=== PATIENT | male | born 1935 | race Caucasian/White ===

== ENCOUNTER 2018-06-02 14:10 | Inpatient (IN) | payer MEDICARE ==
[2018-06-02] MEDS ORDERED: NS 0.9% 1000 ML** 1,000 ML IV ONE (14:51)
[2018-06-02] MEDS ORDERED: Fluconazole 100 MG IVPREMIX(*) 100 MG/50 ML BAG IVPB SCH (16:00)
[2018-06-02] MEDS: HYDROmorphone INJ1* 1 MG/ML SYRINGE IV SLOW PU PRN ×2 (16:59→19:51)
[2018-06-02] MEDS: Ondansetron INJ* 2 MG/ML VIAL IV PRN (17:00)
[2018-06-02] MEDS: NS 0.9% 1000 ML** 1,000 ML IV SCH ×3 (17:04→21:05)
[2018-06-02] MEDS: Fluconazole 100 MG IVPREMIX(*) 100 MG/50 ML BAG IVPB SCH (18:27)
[2018-06-02] MEDS: Metoprolol Tartrate TAB* 50 mg PO SCH (19:51)
[2018-06-02] MEDS: cloNIDine TAB* 0.1 MG PO SCH (19:51)
[2018-06-02 21:00] LABS: Hematocrit 35 % (36-46); Hemoglobin 11.9 g/dL (14.0-18.0)
[2018-06-02 21:15] LABS: Calcium 8.1 mg/dL (8.6-10.3); EGFR African American 5.2 (>60); EGFR Non-African American 4.3 (>60); Potassium 3.5 mmol/L (3.5-5.0)
[2018-06-02 21:40] LABS: BUN/Creatinine Ratio 13.6 (8-20)
[2018-06-02] MEDS ORDERED: Heparin VIAL(*) 5000 UNITS/ML VIAL (FIVE THOUSAND) SUBCUT SCH (22:00)
[2018-06-02] MEDS ORDERED: Potassium Chlor TAB* 20 MEQ TAB.ER PO ONE (22:00)
[2018-06-02] MEDS ORDERED: NS 0.9% 1000 ML** 2,000 ML IV ONE (23:50)
[2018-06-03] MEDS: HYDROmorphone INJ1* 1 MG/ML SYRINGE IV SLOW PU PRN ×4 (03:20→23:10)
[2018-06-03] MEDS: Ondansetron INJ* 2 MG/ML VIAL IV PRN (03:21)
[2018-06-03] MEDS: NS 0.9% 1000 ML** 1,000 ML IV SCH ×2 (03:27→08:39)
[2018-06-03] MEDS ORDERED: Potassium Chlor TAB* 20 MEQ TAB.ER PO ONE ×2 (06:00→09:37)
[2018-06-03 06:34] LABS: ABS Basophils 0 10^3/ul (0-0.2); ABS Eosinophils 0.1 10^3/ul (0-0.6); ABS Lymphocytes 0.2 10^3/ul (1.0-4.8); ABS Monocytes 0.7 10^3/ul (0-0.8); ABS Neutrophils 8.9 10^3/ul (1.5-7.7); ABS Nucleated RBC 0 10^3/ul; Eosinophil % 0.6 %; Hematocrit 31 % (36-46); Hemoglobin 10.7 g/dL (14.0-18.0); Lymphocyte % 2.2 %; Mean Corpuscular HGB Conc 34 g/dL (31-36); Mean Corpuscular Hemoglobin 31 pg (27-31); Mean Corpuscular Volume 90 fL (80-94); Mean Platelet Volume 7.9 fL (7.4-10.4); Nucleated Red Blood Cells % 0; Platelet Count 255 10^3/uL (150-450); Red Blood Count 3.47 10^6 /uL (4.18-5.48); Red Cell Distribution Width 15 % (10.5-15)
[2018-06-03 06:51] LABS: Albumin 3.1 g/dL (3.2-5.2); Albumin/Globulin Ratio 0.8 (1-3); BUN/Creatinine Ratio 16.4 (8-20); EGFR African American 9.7 (>60); Globulin 3.8 g/dL (2-4); Potassium 2.9 mmol/L (3.5-5.0); Total Bilirubin 0.3 mg/dL (0.2-1.0); Total Protein 6.9 g/dL (6.4-8.9)
[2018-06-03] MEDS: Pantoprazole TAB * 40 MG TAB PO SCH (08:37)
[2018-06-03] MEDS: cloNIDine TAB* 0.1 MG PO SCH ×2 (08:37→20:16)
[2018-06-03] MEDS: Tamsulosin CAP* 0.4 MG PO SCH (08:38)
[2018-06-03] MEDS: Metoprolol Tartrate TAB* 50 mg PO SCH ×2 (08:38→20:16)
[2018-06-03 13:08] LABS: BUN/Creatinine Ratio 19.3 (8-20); Calcium 8.2 mg/dL (8.6-10.3); EGFR African American 15.3 (>60); EGFR Non-African American 12.6 (>60); Potassium 2.8 mmol/L (3.5-5.0)
[2018-06-03] MEDS ORDERED: Heparin VIAL(*) 5000 UNITS/ML VIAL (FIVE THOUSAND) SUBCUT SCH (14:00)
[2018-06-03] MEDS: NS 0.9% w/ 40 Meq KCL 1000 ML* 1,000 ML IV SCH ×3 (14:19→22:07)
[2018-06-03] MEDS: Fluconazole 100 MG IVPREMIX(*) 100 MG/50 ML BAG IVPB SCH (18:12)
[2018-06-04] MEDS: NS 0.9% w/ 40 Meq KCL 1000 ML* 1,000 ML IV SCH ×4 (02:22→23:31)
[2018-06-04] MEDS: HYDROmorphone INJ1* 1 MG/ML SYRINGE IV SLOW PU PRN ×6 (03:21→21:18)
[2018-06-04] MEDS: Ondansetron INJ* 2 MG/ML VIAL IV PRN ×2 (07:32→21:19)
[2018-06-04] MEDS: cloNIDine TAB* 0.1 MG PO SCH ×2 (07:33→21:13)
[2018-06-04] MEDS: Tamsulosin CAP* 0.4 MG PO SCH (07:33)
[2018-06-04] MEDS: Pantoprazole TAB * 40 MG TAB PO SCH (07:33)
[2018-06-04] MEDS: Metoprolol Tartrate TAB* 50 mg PO SCH ×2 (07:33→21:12)
[2018-06-04 10:39] LABS: ABS Basophils 0 10^3/ul (0-0.2); ABS Eosinophils 0.1 10^3/ul (0-0.6); ABS Lymphocytes 0.4 10^3/ul (1.0-4.8); ABS Monocytes 0.9 10^3/ul (0-0.8); ABS Neutrophils 7.1 10^3/ul (1.5-7.7); ABS Nucleated RBC 0 10^3/ul; Eosinophil % 1.1 %; Hematocrit 25 % (36-46); Hemoglobin 8.5 g/dL (14.0-18.0); Lymphocyte % 4.4 %; Mean Corpuscular HGB Conc 34 g/dL (31-36); Mean Corpuscular Hemoglobin 31 pg (27-31); Mean Corpuscular Volume 91 fL (80-94); Mean Platelet Volume 7.8 fL (7.4-10.4); Nucleated Red Blood Cells % 0; Platelet Count 192 10^3/uL (150-450); Red Blood Count 2.77 10^6 /uL (4.18-5.48); Red Cell Distribution Width 15 % (10.5-15); White Blood Count 8.4 10^3/uL (3.5-10.8)
[2018-06-04 11:10] LABS: BUN/Creatinine Ratio 20.4 (8-20); EGFR African American 42.4 (>60); Potassium 3.3 mmol/L (3.5-5.0)
[2018-06-04] MEDS ORDERED: Potassium Chlor TAB* 20 MEQ TAB.ER PO ONE (11:23)
[2018-06-04] MEDS ORDERED: Potassium Chloride* LIQUID 20 MEQ/15 ML UDC PO ONE (12:00)
[2018-06-04] MEDS ORDERED: Potassium Chloride LIQUID* 20 MEQ PACKET PO ONE (13:00)
[2018-06-04] MEDS: Fluconazole 100 MG IVPREMIX(*) 100 MG/50 ML BAG IVPB SCH (19:19)
[2018-06-05] MEDS: HYDROmorphone INJ1* 1 MG/ML SYRINGE IV SLOW PU PRN ×3 (00:11→06:00)
[2018-06-05 07:45] LABS: BUN/Creatinine Ratio 16.7 (8-20); Calcium 8.5 mg/dL (8.6-10.3); EGFR African American 54.3 (>60); EGFR Non-African American 44.9 (>60)
[2018-06-05] MEDS: NS 0.9% w/ 40 Meq KCL 1000 ML* 1,000 ML IV SCH ×2 (08:34→17:41)
[2018-06-05] MEDS: cloNIDine TAB* 0.1 MG PO SCH (08:42)
[2018-06-05] MEDS: Tamsulosin CAP* 0.4 MG PO SCH (08:42)
[2018-06-05] MEDS: Pantoprazole TAB * 40 MG TAB PO SCH (08:42)
[2018-06-05] MEDS: Metoprolol Tartrate TAB* 50 mg PO SCH (08:42)
[2018-06-05 08:49] LABS: ABS Basophils 0.1 10^3/ul (0-0.2); ABS Eosinophils 0.2 10^3/ul (0-0.6); ABS Lymphocytes 0.8 10^3/ul (1.0-4.8); ABS Monocytes 0.8 10^3/ul (0-0.8); ABS Neutrophils 7.9 10^3/ul (1.5-7.7); ABS Nucleated RBC 0 10^3/ul; Eosinophil % 1.9 %; Hematocrit 28 % (36-46); Hemoglobin 9.4 g/dL (14.0-18.0); Mean Corpuscular HGB Conc 34 g/dL (31-36); Mean Corpuscular Hemoglobin 31 pg (27-31); Mean Corpuscular Volume 91 fL (80-94); Mean Platelet Volume 7.6 fL (7.4-10.4); Nucleated Red Blood Cells % 0; Platelet Count 181 10^3/uL (150-450); Red Blood Count 3.03 10^6 /uL (4.18-5.48); Red Cell Distribution Width 15 % (10.5-15); White Blood Count 9.8 10^3/uL (3.5-10.8)
--- NOTE | 2018-06-05 10:39 | PN ---
Progress Note - Progress Note Date of Service: 06/05/18 SOAP: Subjective: []Still in pain and feel poorly. Throat better and eating. No BM in several days. Pain controlled on narcotics. He feels is QOL is awful and he does not want to go back on therapy for his cancer. Clonidine HCl (Catapres Tab*) 0.1 mg PO BID [facility] Last Admin: 06/05/18 08:42 Dose: 0.1 mg Fentanyl (Duragesic Patch 25 Mcg/Hr*) 25 mcg TRANSDERM Q72H [facility] Hydromorphone HCl (Dilaudid Inj1s*) 1 mg IV SLOW PU Q2H PRN PRN Reason: PAIN Last Admin: 06/05/18 06:00 Dose: 1 mg Fluconazole/Sodium Chloride (Diflucan 100 Mg Ivpremix(*)) 100 mg in 50 mls @ 100 mls/hr IVPB 1800 [facility] Stop: 06/06/18 18:29 Last Admin: 06/04/18 19:19 Dose: 100 mls/hr Potassium Chloride/Sodium Chloride (Ns 0.9% W/ 40 Meq Kcl 1000 Ml*) 1,000 mls @ 100 mls/hr IV PER RATE [facility] Last Admin: 06/05/18 08:34 Dose: 100 mls/hr Metoprolol Tartrate (Lopressor Tab*) 50 mg PO BID [facility] Last Admin: 06/05/18 08:42 Dose: 50 mg Ondansetron HCl (Zofran Inj*) 4 mg IV Q4H PRN PRN Reason: NAUSEA/VOMITING Last Admin: 06/04/18 21:19 Dose: 4 mg Pantoprazole Sodium (Protonix Tab*) 40 mg PO DAILY [facility] Last Admin: 06/05/18 08:42 Dose: 40 mg Polyethylene Glycol/Electrolytes (Miralax*) 17 gm PO 0800,2100 [facility] Stop: 06/06/18 20:59 Potassium Chloride (Klor Con Er Tab*) 20 meq PO BID [facility] Stop: 06/08/18 10:59 Senna (Senokot Tab*) 2 tab PO DAILY [facility] Tamsulosin HCl (Flomax Cap*) 0.4 mg PO DAILY [facility] Last Admin: 06/05/18 08:42 Dose: 0.4 mg Objective: [] Vital Signs Temp Pulse Resp BP Pulse Ox 98.1 F 87 16 159/70 97 06/05/18 07:53 06/05/18 07:53 06/05/18 07:53 06/05/18 07:53 06/05/18 07:53 HEENT thrush is better CTA RRR S1S2 +BS, distended and non tender Ext Tr edema K 3.0, Cr 1.5 Assessment: []82 year old male with metastaic prostate cancer ARF from bladder outlet obstruction. Renal function improved with Cedeno. Discussion today about disease prognosis and therapy. He has not wanted aggressive therapy and does not want to suffer. No further therapy for his cancer and will consult hospice. Discussed prostate obstruction and will leave Cedeno in place. If take out will within one to two weeks. Plan: []1. Prostate cancer. No additional therapy, hospice consultation. 2. Disp. Home if possible, little social support. 3. Bladder obstruction. Cedeno will remain in place 4. Hematuria, Improving. No additional Pradaxa 5. Pain. - Continue Dilaudid today IV, go to PO tomorrow. - Fentanly patch 25 mcg now 6. FEN. Replete K and Mg and continue IVF for now 7. Constipation - Senna 1 bid - Miralax x 2 today.
[2018-06-05 10:50] LABS: Magnesium 1.3 mg/dL (1.9-2.7)
[2018-06-05] MEDS: fentaNYL PATCH 25 MCG/HR TRANSDERM SCH (11:02)
[2018-06-05] MEDS: Potassium Chlor TAB* 20 MEQ TAB.ER PO SCH (11:04)
--- NOTE | 2018-06-05 12:09 | CONSULT ---
Palliative / Hospice Consult Ordering Provider: Bartolome Jimenez - Subjective Code Status: DNR MOLST Part A Completed: Yes - on chart MOLST Part E Completed:: Yes - on chart - History or Present Illness History or Present Illness: 82 yo male resident of [facility] with metastatic prostate cancer admitted for abdominal pain. Cedeno placed which helped the acute renal failure. Currently he is trying fentanyl for pain control. PMH is significant for ARF secondary to bladder outlet obstruction, HTN, R leg aneurysm and osteoporosis. Pt is very sleepy and keeps falling asleep during conversation. There are no old records and pt is a poor historian. He has been in [facility] from 1991 until 2016 when he was released. His prostate cancer was diagnosed in [facility]. He has been following with Dr. Jimenez since being released. Now he is unable to tolerate the chemotherapy, doesn't want to pursue it and is interested in Hospice. Feels he doesn't have a good quality of life. Just elected to be DNR/DNI. Lab Values: Abnormal Lab Results 06/05/18 06/05/18 06/05/18 06:50 08:42 08:42 WBC 9.8 RBC 3.03 L Hgb 9.4 L Hct 28 L MCV 91 MCH 31 MCHC 34 RDW 15 Plt Count 181 MPV 7.6 Neut % (Auto) 80.9 Lymph % (Auto) 8.0 [place] % (Auto) 8.5 Eos % (Auto) 1.9 Baso % (Auto) 0.7 Absolute Neuts (auto) 7.9 H Absolute Lymphs (auto) 0.8 L Absolute Monos (auto) 0.8 Absolute Eos (auto) 0.2 Absolute Basos (auto) 0.1 Absolute Nucleated RBC 0 Nucleated RBC % 0 Sodium 142 Potassium 3.0 L Chloride 115 H Carbon Dioxide 17 L Anion Gap 10 BUN 25 H Creatinine 1.50 H Est GFR ( Amer) 54.3 Est GFR (Non-Af Amer) 44.9 BUN/Creatinine Ratio 16.7 Glucose 106 H Calcium 8.5 L Magnesium 1.3 L Prostate Specific Ag 63.208 H Laboratory Last Values WBC 9.8 10^3/uL (3.5-10.8) 06/05/18 08:42 RBC 3.03 10^6 /uL (4.18-5.48) L 06/05/18 08:42 Hgb 9.4 g/dL (14.0-18.0) L 06/05/18 08:42 Hct 28 % (36-46) L 06/05/18 08:42 MCV 91 fL (80-94) 06/05/18 08:42 MCH 31 pg (27-31) 06/05/18 08:42 MCHC 34 g/dL (31-36) 06/05/18 08:42 RDW 15 % (10.5-15) 06/05/18 08:42 Plt Count 181 10^3/uL (150-450) 06/05/18 08:42 MPV 7.6 fL (7.4-10.4) 06/05/18 08:42 Neut % (Auto) 80.9 % 06/05/18 08:42 Lymph % (Auto) 8.0 % 06/05/18 08:42 [place] % (Auto) 8.5 % 06/05/18 08:42 Eos % (Auto) 1.9 % 06/05/18 08:42 Baso % (Auto) 0.7 % 06/05/18 08:42 Absolute Neuts (auto) 7.9 10^3/ul (1.5-7.7) H 06/05/18 08:42 Absolute Lymphs (auto) 0.8 10^3/ul (1.0-4.8) L 06/05/18 08:42 Absolute Monos (auto) 0.8 10^3/ul (0-0.8) 06/05/18 08:42 Absolute Eos (auto) 0.2 10^3/ul (0-0.6) 06/05/18 08:42 Absolute Basos (auto) 0.1 10^3/ul (0-0.2) 06/05/18 08:42 Absolute Nucleated RBC 0 10^3/ul 06/05/18 08:42 Nucleated RBC % 0 06/05/18 08:42 Sodium 142 mmol/L (135-145) 06/05/18 06:50 Potassium 3.0 mmol/L (3.5-5.0) L 06/05/18 06:50 Chloride 115 mmol/L (101-111) H 06/05/18 06:50 Carbon Dioxide 17 mmol/L (22-32) L 06/05/18 06:50 Anion Gap 10 mmol/L (2-11) 06/05/18 06:50 BUN 25 mg/dL (6-24) H 06/05/18 06:50 Creatinine 1.50 mg/dL (0.67-1.17) H 06/05/18 06:50 Est GFR ( Amer) 54.3 (>60) 06/05/18 06:50 Est GFR (Non-Af Amer) 44.9 (>60) 06/05/18 06:50 BUN/Creatinine Ratio 16.7 (8-20) 06/05/18 06:50 Glucose 106 mg/dL (70-100) H 06/05/18 06:50 Calcium 8.5 mg/dL (8.6-10.3) L 06/05/18 06:50 Magnesium 1.3 mg/dL (1.9-2.7) L 06/05/18 08:42 Total Bilirubin 0.30 mg/dL (0.2-1.0) 06/03/18 06:03 AST 35 U/L (13-39) 06/03/18 06:03 ALT 32 U/L (7-52) 06/03/18 06:03 Alkaline Phosphatase 78 U/L (34-104) 06/03/18 06:03 Total Protein 6.9 g/dL (6.4-8.9) 06/03/18 06:03 Albumin 3.1 g/dL (3.2-5.2) L 06/03/18 06:03 Globulin 3.8 g/dL (2-4) 06/03/18 06:03 Albumin/Globulin Ratio 0.8 (1-3) L 06/03/18 06:03 Prostate Specific Ag 63.208 ng/mL (0-4.000) H 06/05/18 08:42 - Objective Active Medications: Clonidine HCl (Catapres Tab*) 0.1 mg PO BID [facility] Last Admin: 06/05/18 08:42 Dose: 0.1 mg Fentanyl (Duragesic Patch 25 Mcg/Hr*) 25 mcg TRANSDERM Q72H [facility] Last Admin: 06/05/18 11:02 Dose: 25 mcg Hydromorphone HCl (Dilaudid Inj1s*) 1 mg IV SLOW PU Q2H PRN PRN Reason: PAIN Last Admin: 06/05/18 06:00 Dose: 1 mg Fluconazole/Sodium Chloride (Diflucan 100 Mg Ivpremix(*)) 100 mg in 50 mls @ 100 mls/hr IVPB 1800 [facility] Stop: 06/06/18 18:29 Last Admin: 06/04/18 19:19 Dose: 100 mls/hr Potassium Chloride/Sodium Chloride (Ns 0.9% W/ 40 Meq Kcl 1000 Ml*) 1,000 mls @ 100 mls/hr IV PER RATE [facility] Last Admin: 06/05/18 08:34 Dose: 100 mls/hr Metoprolol Tartrate (Lopressor Tab*) 50 mg PO BID [facility] Last Admin: 06/05/18 08:42 Dose: 50 mg Ondansetron HCl (Zofran Inj*) 4 mg IV Q4H PRN PRN Reason: NAUSEA/VOMITING Last Admin: 06/04/18 21:19 Dose: 4 mg Pantoprazole Sodium (Protonix Tab*) 40 mg PO DAILY [facility] Last Admin: 06/05/18 08:42 Dose: 40 mg Polyethylene Glycol/Electrolytes (Miralax*) 17 gm PO 0800,2100 [facility] Stop: 06/06/18 20:59 Potassium Chloride (Klor Con Er Tab*) 20 meq PO BID [facility] Stop: 06/08/18 10:59 Last Admin: 06/05/18 11:04 Dose: 20 meq Senna (Senokot Tab*) 2 tab PO BEDTIME [facility] Tamsulosin HCl (Flomax Cap*) 0.4 mg PO DAILY [facility] Last Admin: 06/05/18 08:42 Dose: 0.4 mg Vital Signs: Vital Signs: Temp Pulse Resp BP Pulse Ox 98.1 F 87 16 159/70 97 06/05/18 07:53 06/05/18 07:53 06/05/18 11:02 06/05/18 07:53 06/05/18 07:53 Patient Weight: Weight 89.539 kg Intake and Output: Intake & Output 06/03/18 06/04/18 06/05/18 06/06/18 06:59 06:59 06:59 06:59 Intake Total 2714 7602 3520 240 Output Total 9875 49746 4636 600 Balance -4088 -1719 -605 -360 Weight 89.539 kg Intake: IV Fluids 4232 6955 2250 Fluconazole 50 NS (0.9%) 4232 3000 NS (0.9%) 40 meq KCL 3955 2200 IVPB 51 Fluconazole 51 Oral 880 1660 1270 240 Output: Urine 1500 600 Cedeno 7000 94523 4125 Residual 700 16 fr 700 Other: Estimated Void Large Date of Last Bowel [id number] Movement # Bowel Movements 0 0 0 ADLs: Meal Record Start: 06/02/18 16: 45 Freq: DAILY@0900,1400,1800 Status: Active Protocol: Created 06/02/18 16:45 System (Rec: 06/02/18 16:45 System MED-M18) Document 06/02/18 18:00 [id number] (Rec: 06/02/18 21:49 [id number] MED-C09) Document 06/03/18 08:40 [id number] (Rec: 06/03/18 08:40 [id number] MED-M11) Document 06/03/18 09:00 [id number] (Rec: 06/03/18 09:28 [id number] MED-C11) Document 06/03/18 13:05 [id number] (Rec: 06/03/18 13:05 [id number] MED-C14) Document 06/03/18 18:00 [id number] (Rec: 06/03/18 18:13 [id number] MED-C14) Document 06/04/18 09:00 [id number] (Rec: 06/04/18 09:42 [id number] MED-C11) Document 06/04/18 14:00 [id number] (Rec: 06/04/18 14:50 [id number] MED-C09) Document 06/04/18 15:19 [id number] (Rec: 06/04/18 15:19 [id number] MED-C09) Document 06/04/18 18:00 [id number] (Rec: 06/04/18 22:14 [id number] MED-C16) Document 06/05/18 09:00 [id number] (Rec: 06/05/18 09:30 [id number] MED-C11) Intake and Output Start: 06/02/18 15: 25 Freq: 06,14,2200 Status: Active Protocol: Created 06/02/18 15:25 [id number] (Rec: 06/02/18 15:25 BKG DON-BG12) Document 06/02/18 21:24 [id number] (Rec: 06/02/18 21:25 [id number] MED-C09) Document 06/02/18 23:42 [id number] (Rec: 06/02/18 23:43 [id number] MED-C15) Document 06/03/18 03:31 [id number] (Rec: 06/03/18 03:31 [id number] MED-M21) Document 06/03/18 03:37 [id number] (Rec: 06/03/18 03:38 [id number] MED-C09) Document 06/03/18 08:05 [id number] (Rec: 06/03/18 08:06 [id number] MED-C09) Document 06/03/18 11:41 [id number] (Rec: 06/03/18 11:42 [id number] MED-C11) Document 06/03/18 14:00 MEV8803 (Rec: 06/03/18 14:25 [id number] MED-C14) Document 06/03/18 20:22 [id number] (Rec: 06/03/18 20:22 [id number] MED-M19) Document 06/03/18 21:18 [id number] (Rec: 06/03/18 21:24 [id number] MED-C11) Document 06/04/18 01:19 SAT6646 (Rec: 06/04/18 01:19 [id number] MED-C04) Document 06/04/18 05:16 [id number] (Rec: 06/04/18 05:17 [id number] MED-C11) Document 06/04/18 14:00 PEM5916 (Rec: 06/04/18 14:50 EST0370 MED-C09) Document 06/04/18 22:00 DCQ2310 (Rec: 06/04/18 22:14 [id number] MED-C16) Document 06/05/18 05:32 [id number] (Rec: 06/05/18 05:33 [id number] MED-C13) Intake and Output Start: 06/02/18 16: 45 Freq: DAILY@0600,1400,2200 Status: Active Protocol: Created 06/02/18 16:45 System (Rec: 06/02/18 16:45 System MED-M18) Document 06/02/18 21:24 [id number] (Rec: 06/02/18 21:25 [id number] MED-C09) Document 06/03/18 03:37 [id number] (Rec: 06/03/18 03:38 [id number] MED-C09) Document 06/03/18 14:00 [id number] (Rec: 06/03/18 14:25 [id number] MED-C14) Document 06/03/18 18:43 [id number] (Rec: 06/03/18 18:44 [id number] MED-C11) Document 06/03/18 21:18 [id number] (Rec: 06/03/18 21:24 [id number] MED-C11) Document 06/04/18 05:16 [id number] (Rec: 06/04/18 05:17 [id number] MED-C11) Document 06/04/18 14:00 [id number] (Rec: 06/04/18 14:50 [id number] MED-C09) Document 06/04/18 22:00 [id number] (Rec: 06/04/18 22:14 [id number] MED-C16) Document 06/05/18 05:32 [id number] (Rec: 06/05/18 05:33 [id number] MED-C13) Head: Normal Neck: NL Appearance and Movements; NL JVP Cardiovascular: NL Sounds; No Murmurs; No JVD Respiratory: Clear to Auscultation Extremities: - - 1+edema Neurological: Alert and Oriented x 3 - but gets confused - Assessment Assessment: 82yo male with metastatic prostate eligible for hospice - Plan Consult Plan (MU): Hospice Plan: Discussion with pt about treatment options. He wants to go home and have hospice see him there. He has a brother in the area and a niece(Tamra Shanks?) but doesn't want to live with them. His brother Radhames is his HCP [phone]. Explained how hospice works and left a brochure. Referral is being sent through hospital case management. He asked me to call Rima Cyr, nurse navigator about his medicare card. She said it will still work but he needs a new one which she will help him get. He also asked me to call Brisa from [employer] who is the case management director (not [facility] as he thought) left message. According to pt Dr Jimenez said with chemo he would have 1-2 yr life expectancy without it 3-6months. Pt is eligible for hospice with diagnosis of metastatic prostate cancer. KPS 60% PPS 60% - Time On Unit Date of Evaluation: 06/05/18 Hospice Consult Time in: 11:30 Hospice Consult Time Out: 01:00 Hospice Consult Time Total: -630 > 50% of Time Spend In Counseling or Coordinating Care: Yes
[2018-06-05] MEDS: Fluconazole 100 MG IVPREMIX(*) 100 MG/50 ML BAG IVPB SCH (17:41)
[2018-06-05] MEDS: fentaNYL Patch Check Q Shift 1 NOTE FOLLOW UP SCH (19:25)
[2018-06-06] MEDS: Polyethylene Glycol 3350* 17 GM PACKET PO SCH ×2 (00:12→10:18)
[2018-06-06] MEDS: Metoprolol Tartrate TAB* 50 mg PO SCH ×3 (00:13→20:43)
[2018-06-06] MEDS: Senna TAB PO SCH ×2 (00:13→20:48)
[2018-06-06] MEDS: Potassium Chlor TAB* 20 MEQ TAB.ER PO SCH ×3 (00:13→20:48)
[2018-06-06] MEDS: cloNIDine TAB* 0.1 MG PO SCH ×3 (00:13→20:43)
[2018-06-06] MEDS: LORazepam TAB(*) 1 MG PO PRN (02:28)
[2018-06-06] MEDS: NS 0.9% w/ 40 Meq KCL 1000 ML* 1,000 ML IV SCH (04:39)
[2018-06-06] MEDS: fentaNYL Patch Check Q Shift 1 NOTE FOLLOW UP SCH ×2 (07:08→18:26)
[2018-06-06 07:37] LABS: ABS Basophils 0 10^3/ul (0-0.2); ABS Eosinophils 0.2 10^3/ul (0-0.6); ABS Lymphocytes 0.8 10^3/ul (1.0-4.8); ABS Monocytes 0.6 10^3/ul (0-0.8); ABS Neutrophils 5.3 10^3/ul (1.5-7.7); ABS Nucleated RBC 0 10^3/ul; Eosinophil % 3.2 %; Hematocrit 25 % (36-46); Hemoglobin 8.6 g/dL (14.0-18.0); Lymphocyte % 11.7 %; Mean Corpuscular HGB Conc 35 g/dL (31-36); Mean Corpuscular Hemoglobin 31 pg (27-31); Mean Corpuscular Volume 89 fL (80-94); Mean Platelet Volume 7.9 fL (7.4-10.4); Nucleated Red Blood Cells % 0; Platelet Count 148 10^3/uL (150-450); Red Cell Distribution Width 14 % (10.5-15)
[2018-06-06 07:41] LABS: Albumin 2.6 g/dL (3.2-5.2); Calcium 7.3 mg/dL (8.6-10.3); Total Bilirubin 0.5 mg/dL (0.2-1.0)
[2018-06-06 07:43] LABS: Magnesium 0.9 mg/dL (1.9-2.7); Potassium 2.3 mmol/L (3.5-5.0)
[2018-06-06 07:47] LABS: Albumin/Globulin Ratio 0.8 (1-3); BUN/Creatinine Ratio 10.5 (8-20); EGFR African American 103.3 (>60); EGFR Non-African American 85.4 (>60); Globulin 3.3 g/dL (2-4); Total Protein 5.9 g/dL (6.4-8.9)
[2018-06-06] MEDS ORDERED: Magnesium Sulfate 4 GM IV IVPB ONE ×2 (09:00→17:18)
[2018-06-06] MEDS ORDERED: Potassium Chlor TAB* 20 MEQ TAB.ER PO ONE ×2 (09:00→19:00)
[2018-06-06] MEDS: Tamsulosin CAP* 0.4 MG PO SCH (10:37)
[2018-06-06] MEDS: KCL 20 MEQ/100 ML IVPREMIX* 20 MEQ/100 ML BAG IV SCH ×4 (10:38→22:50)
[2018-06-06] MEDS: Pantoprazole TAB * 40 MG TAB PO SCH (10:38)
[2018-06-06 17:13] LABS: BUN/Creatinine Ratio 11.5 (8-20); Calcium 7.1 mg/dL (8.6-10.3); EGFR African American 115.6 (>60); EGFR Non-African American 95.5 (>60); Magnesium 1.8 mg/dL (1.9-2.7)
[2018-06-06 17:16] LABS: Potassium 2.5 mmol/L (3.5-5.0)
[2018-06-06] MEDS: Fluconazole 100 MG IVPREMIX(*) 100 MG/50 ML BAG IVPB SCH (17:55)
[2018-06-06 23:41] LABS: BUN/Creatinine Ratio 11.4 (8-20); Calcium 7.1 mg/dL (8.6-10.3); EGFR African American 100.6 (>60); EGFR Non-African American 83.1 (>60); Magnesium 2.3 mg/dL (1.9-2.7); Potassium 2.8 mmol/L (3.5-5.0)
[2018-06-07 06:31] LABS: Calcium 6.9 mg/dL (8.6-10.3); Magnesium 1.7 mg/dL (1.9-2.7)
[2018-06-07 06:35] LABS: Potassium 2.5 mmol/L (3.5-5.0)
[2018-06-07 06:36] LABS: BUN/Creatinine Ratio 12.2 (8-20); EGFR African American 122.8 (>60); EGFR Non-African American 101.5 (>60)
[2018-06-07] MEDS: fentaNYL Patch Check Q Shift 1 NOTE FOLLOW UP SCH ×2 (06:42→19:58)
[2018-06-07] MEDS ORDERED: Potassium Chlor TAB* 20 MEQ TAB.ER PO ONE (07:00)
[2018-06-07] MEDS ORDERED: IVPREMIX IV ONE (07:00)
[2018-06-07] MEDS ORDERED: POTASSIUM CHLORIDE IV SCH (07:00)
[2018-06-07] MEDS ORDERED: KCL IV ONE (07:00)
[2018-06-07] MEDS: KCL 20 MEQ/100 ML IVPREMIX* 20 MEQ/100 ML BAG IV SCH ×2 (07:15→11:34)
[2018-06-07] MEDS: cloNIDine TAB* 0.1 MG PO SCH ×2 (07:16→20:42)
[2018-06-07] MEDS: Pantoprazole TAB * 40 MG TAB PO SCH (07:16)
[2018-06-07] MEDS: Metoprolol Tartrate TAB* 50 mg PO SCH ×2 (07:16→20:42)
[2018-06-07] MEDS: Tamsulosin CAP* 0.4 MG PO SCH (07:16)
[2018-06-07] MEDS: Potassium Chlor TAB* 20 MEQ TAB.ER PO SCH (07:17)
[2018-06-07] MEDS ORDERED: Magnesium Sulf 4 GM/100 ML IV* 4,000 MG/100 ML BAG IVPB ONE (09:24)
[2018-06-07] MEDS: NS 0.9% w/ 40 Meq KCL 1000 ML* 1,000 ML IV SCH ×2 (10:50→17:38)
[2018-06-07] MEDS: Potassium Chloride LIQUID* 20 MEQ PACKET PO SCH ×2 (10:56→20:47)
[2018-06-07] MEDS: Spironolactone TAB* 25 MG PO SCH ×2 (10:56→20:41)
[2018-06-07] MEDS ORDERED: Potassium Chloride* LIQUID 20 MEQ/15 ML UDC PO SCH (11:00)
[2018-06-07] MEDS: Gabapentin CAP(*) 100 MG PO SCH ×2 (12:20→20:40)
[2018-06-07 14:53] LABS: BUN/Creatinine Ratio 10.3 (8-20); Calcium 7.2 mg/dL (8.6-10.3); EGFR African American 115.6 (>60); EGFR Non-African American 95.5 (>60); Magnesium 1.4 mg/dL (1.9-2.7); Potassium 3.1 mmol/L (3.5-5.0)
[2018-06-07] MEDS ORDERED: Potassium Chloride LIQUID* 20 MEQ PACKET PO ONE (20:00)
[2018-06-07] MEDS ORDERED: Magnesium Sulfate 4 GM IV IVPB ONE (20:00)
[2018-06-07] MEDS: oxyCODONE TAB* 5 MG TAB PO PRN (20:41)
[2018-06-07] MEDS: Senna TAB PO SCH (20:41)
[2018-06-08] MEDS: NS 0.9% w/ 40 Meq KCL 1000 ML* 1,000 ML IV SCH ×2 (03:46→20:10)
[2018-06-08] MEDS: fentaNYL Patch Check Q Shift 1 NOTE FOLLOW UP SCH ×2 (07:24→18:46)
[2018-06-08] MEDS ORDERED: Magnesium Sulf 4 GM/100 ML IV* 4,000 MG/100 ML BAG IVPB ONE ×2 (08:00→09:30)
[2018-06-08 08:53] LABS: BUN/Creatinine Ratio 10.8 (8-20); Calcium 7.4 mg/dL (8.6-10.3); EGFR African American 122.8 (>60); EGFR Non-African American 101.5 (>60); Magnesium 1.7 mg/dL (1.9-2.7); Potassium 3.2 mmol/L (3.5-5.0)
[2018-06-08] MEDS ORDERED: Senna TAB PO PRN (09:23)
[2018-06-08] MEDS: cloNIDine TAB* 0.1 MG PO SCH ×2 (10:06→21:11)
[2018-06-08] MEDS: Gabapentin CAP(*) 100 MG PO SCH ×3 (10:07→21:10)
[2018-06-08] MEDS: Tamsulosin CAP* 0.4 MG PO SCH (10:08)
[2018-06-08] MEDS: Pantoprazole TAB * 40 MG TAB PO SCH (10:09)
[2018-06-08] MEDS: Metoprolol Tartrate TAB* 50 mg PO SCH ×2 (10:09→21:11)
[2018-06-08] MEDS: Spironolactone TAB* 25 MG PO SCH ×2 (10:09→21:11)
[2018-06-08] MEDS: fentaNYL PATCH 25 MCG/HR TRANSDERM SCH (10:14)
[2018-06-08] MEDS: KCL 10 MEQ/50 ML IVPREMIX* 10 MEQ/50 ML BAG IV SCH ×4 (10:18→15:19)
[2018-06-08] MEDS: Potassium Chloride LIQUID* 20 MEQ PACKET PO SCH (10:28)
--- NOTE | 2018-06-08 10:43 | PN ---
Progress Note - Progress Note Date of Service: 06/08/18 SOAP: Subjective: [Somewhat miserable today. Reports some diffuse myalgias, most pain is in his feet while walking. Reports nausea and vomiting with oral potassium and refuses any further doses. Apart from when he has taken the potassium he denies further nausea. No diarrhea or constipation, some abdominal bloating.] Objective: [ Laboratory Results - last 24 hr 06/07/18 06/08/18 13:41 08:30 Sodium 138 137 Potassium 3.1 L 3.2 L Chloride 104 104 Carbon Dioxide 28 28 Anion Gap 6 5 BUN 8 8 Creatinine 0.78 0.74 Est GFR ( Amer) 115.6 122.8 Est GFR (Non-Af Amer) 95.5 101.5 BUN/Creatinine Ratio 10.3 10.8 Glucose 130 H 93 Calcium 7.2 L 7.4 L Magnesium 1.4 L 1.7 L Clonidine HCl (Catapres Tab*) 0.1 mg PO BID [facility] Last Admin: 06/08/18 10:06 Dose: 0.1 mg Fentanyl (Duragesic Patch 25 Mcg/Hr*) 25 mcg TRANSDERM Q72H [facility] Last Admin: 06/08/18 10:14 Dose: 25 mcg Gabapentin (Neurontin Cap(*)) 200 mg PO TID [facility] Last Admin: 06/08/18 10:07 Dose: 200 mg Potassium Chloride/Sodium Chloride (Ns 0.9% W/ 40 Meq Kcl 1000 Ml*) 1,000 mls @ 150 mls/hr IV PER RATE [facility] Last Admin: 06/08/18 03:46 Dose: 150 mls/hr Magnesium Sulfate (Magnesium Sulf 4 Gm/100 Ml Iv*) 4,000 mg in 100 mls @ 33.333 mls/hr IVPB ONCE ONE Stop: 06/08/18 10:59 Last Admin: 06/08/18 10:02 Dose: 33.333 mls/hr Magnesium Sulfate (Magnesium Sulf 4 Gm/100 Ml Iv*) 4,000 mg in 100 mls @ 33.333 mls/hr IVPB ONCE ONE Stop: 06/08/18 12:29 Last Admin: 06/08/18 10:28 Dose: Not Given Potassium Chloride (Potassium Chloride 10 Meq/50 Ml Ivpremix*) 10 meq in 50 mls @ 50 mls/hr IV Q1H [facility] Stop: 06/08/18 12:59 Last Admin: 06/08/18 10:18 Dose: 50 mls/hr Lorazepam (Ativan Tab(*)) 1 mg PO BEDTIME PRN PRN Reason: ANXIETY, SLEEP Last Admin: 06/06/18 02:28 Dose: 1 mg Metoprolol Tartrate (Lopressor Tab*) 50 mg PO BID [facility] Last Admin: 06/08/18 10:09 Dose: 50 mg Ondansetron HCl (Zofran Inj*) 4 mg IV Q4H PRN PRN Reason: NAUSEA/VOMITING Last Admin: 06/04/18 21:19 Dose: 4 mg Oxycodone HCl (Roxycodone Tab*) 5 mg PO Q4H PRN PRN Reason: PAIN Last Admin: 06/07/18 20:41 Dose: 5 mg Pantoprazole Sodium (Protonix Tab*) 40 mg PO DAILY [facility] Last Admin: 06/08/18 10:09 Dose: 40 mg Pharmacy Profile Note (Fentanyl Patch Check Q Shift) 1 note FOLLOW UP 0700, 1900 [facility] Last Admin: 06/08/18 07:24 Dose: 1 note Potassium Chloride (Klor-Con Liquid*) 20 meq PO BID [facility] Last Admin: 06/08/18 10:28 Dose: Not Given Senna (Senokot Tab*) 2 tab PO BEDTIME [facility] Last Admin: 06/07/18 20:41 Dose: Not Given Senna (Senokot Tab*) 1 tab PO DAILY PRN PRN Reason: CONSTIPATION Spironolactone (Aldactone Tab*) 25 mg PO BID [facility] Last Admin: 06/08/18 10:09 Dose: 25 mg Tamsulosin HCl (Flomax Cap*) 0.4 mg PO DAILY [facility] Last Admin: 06/08/18 10:08 Dose: 0.4 mg Vital Signs: Temp Pulse Resp BP Pulse Ox 98.3 F 76 18 137/70 98 06/08/18 07:30 06/08/18 07:30 06/08/18 10:14 06/08/18 07:30 06/08/18 07:30 Exam: Gen: 82 yo male who appears comfortable HEENT: MMM CV: RRR Resp: CTA, no w/c/r Abd: soft, mildly distended, nonTTP Ext: 1-2+ LE edema Skin: no rashes] Assessment: [82 yo male with metastatic prostate CA admitted with LOUIS secondary to bladder outlet obstruction, s/p Cedeno catheter placement with normalization of Cr but complicated by postobstructive diuresis and K/Mg wasting.] Plan: [1. LOUIS secondary to bladder outlet obstruction - resolved - keep Cedeno catheter in place 2. Postobstructive diuresis with hypokalemia/hypomagnesemia - output remains high, but improving - electrolytes somewhat improved today - cont with aggressive electrolyte repletion (avoid oral K) - cont spironolactone which was started in hopes of sparing K - cont IVF in attempt to match output or allow for a slightly negative balance 3. Metastatic prostate CA - plan for home with hospice following this hospitalization 4. Pain - cont fentanyl patch 25 mcg and prn oxycodone - foot pain likely exacerbated by LE edema, but avoid aggressive diuresis at this time Dispo: plan for home with hospice when he has achieved an appropriate fluid balance and can maintain his electrolytes, possibly in the next 1-2 days]
[2018-06-08 16:12] LABS: BUN/Creatinine Ratio 9.8 (8-20); Calcium 7.2 mg/dL (8.6-10.3); EGFR African American 109.1 (>60); EGFR Non-African American 90.2 (>60); Magnesium 2.3 mg/dL (1.9-2.7); Potassium 3.7 mmol/L (3.5-5.0)
[2018-06-08] MEDS: LORazepam TAB(*) 1 MG PO PRN (21:10)
[2018-06-08] MEDS: oxyCODONE TAB* 5 MG TAB PO PRN (21:11)
[2018-06-08] MEDS: Senna TAB PO SCH (21:26)
[2018-06-09] MEDS: NS 0.9% w/ 40 Meq KCL 1000 ML* 1,000 ML IV SCH (03:28)
[2018-06-09] MEDS: fentaNYL Patch Check Q Shift 1 NOTE FOLLOW UP SCH ×2 (06:56→18:43)
--- NOTE | 2018-06-09 08:00 | PN ---
Progress Note - Progress Note Date of Service: 06/09/18 SOAP: Subjective: []Feels better today. Pain is controlled, eating well. Does not tolerate oral potassium. Has BM. No fevers. Clonidine HCl (Catapres Tab*) 0.1 mg PO BID [facility] Last Admin: 06/08/18 21:11 Dose: 0.1 mg Fentanyl (Duragesic Patch 25 Mcg/Hr*) 25 mcg TRANSDERM Q72H [facility] Last Admin: 06/08/18 10:14 Dose: 25 mcg Gabapentin (Neurontin Cap(*)) 200 mg PO TID [facility] Last Admin: 06/08/18 21:10 Dose: 200 mg Potassium Chloride/Sodium Chloride (Ns 0.9% W/ 40 Meq Kcl 1000 Ml*) 1,000 mls @ 150 mls/hr IV PER RATE [facility] Last Admin: 06/09/18 03:28 Dose: 150 mls/hr Lorazepam (Ativan Tab(*)) 1 mg PO BEDTIME PRN PRN Reason: ANXIETY, SLEEP Last Admin: 06/08/18 21:10 Dose: 1 mg Metoprolol Tartrate (Lopressor Tab*) 50 mg PO BID [facility] Last Admin: 06/08/18 21:11 Dose: 50 mg Ondansetron HCl (Zofran Inj*) 4 mg IV Q4H PRN PRN Reason: NAUSEA/VOMITING Last Admin: 06/04/18 21:19 Dose: 4 mg Oxycodone HCl (Roxycodone Tab*) 5 mg PO Q4H PRN PRN Reason: PAIN Last Admin: 06/08/18 21:11 Dose: 5 mg Pantoprazole Sodium (Protonix Tab*) 40 mg PO DAILY [facility] Last Admin: 06/08/18 10:09 Dose: 40 mg Pharmacy Profile Note (Fentanyl Patch Check Q Shift) 1 note FOLLOW UP 0700, 1900 [facility] Last Admin: 06/09/18 06:56 Dose: 1 note Senna (Senokot Tab*) 2 tab PO BEDTIME [facility] Last Admin: 06/08/18 21:26 Dose: Not Given Senna (Senokot Tab*) 1 tab PO DAILY PRN PRN Reason: CONSTIPATION Spironolactone (Aldactone Tab*) 25 mg PO BID [facility] Last Admin: 06/08/18 21:11 Dose: 25 mg Tamsulosin HCl (Flomax Cap*) 0.4 mg PO DAILY [facility] Last Admin: 06/08/18 10:08 Dose: 0.4 mg Objective: [] Vital Signs Temp Pulse Resp BP Pulse Ox 97.4 F 76 21 138/67 98 06/09/18 07:14 06/09/18 07:14 06/09/18 07:14 06/09/18 07:14 06/09/18 07:14 + 6L urine output Exam: Gen: no distress HEENT: MMM, pale CV: RRR Resp: CTA, no w/c/r Abd: soft, mildly distended, NT. obese Ext: 1-2+ LE edema Skin: no rashes] Assessment: [82 yo male with metastatic prostate CA admitted with [facility]IS secondary to bladder outlet obstruction, s/p Cedneo catheter placement with normalization of Cr but complicated by postobstructive diuresis and K/Mg wasting. Now improved. ] Plan: [1. [facility]IS secondary to bladder outlet obstruction - Cr improved to baseline. - keep Cedeno catheter in place 2. Postobstructive diuresis with hypokalemia/hypomagnesemia - Improved today with K and Mg WNL on aggressive repletion - Will hold IVF and see if kidneys can reduce out put, follow labs - If stable in am will d/c tomorrow. 3. Metastatic prostate CA - plan for home with hospice following this hospitalization 4. Pain - cont fentanyl patch 25 mcg and prn oxycodone - foot pain likely exacerbated by LE edema, follow fluid balance. Dispo: plan for home with hospice tomorrow.
[2018-06-09] MEDS: cloNIDine TAB* 0.1 MG PO SCH ×2 (09:32→20:58)
[2018-06-09] MEDS: Gabapentin CAP(*) 100 MG PO SCH ×3 (09:32→20:58)
[2018-06-09] MEDS: Pantoprazole TAB * 40 MG TAB PO SCH (09:33)
[2018-06-09] MEDS: Metoprolol Tartrate TAB* 50 mg PO SCH ×2 (09:33→20:59)
[2018-06-09 10:20] LABS: ABS Basophils 0 10^3/ul (0-0.2); ABS Eosinophils 0.2 10^3/ul (0-0.6); ABS Lymphocytes 0.6 10^3/ul (1.0-4.8); ABS Monocytes 0.5 10^3/ul (0-0.8); ABS Neutrophils 5.7 10^3/ul (1.5-7.7); ABS Nucleated RBC 0 10^3/ul; Eosinophil % 2.6 %; Hematocrit 25 % (36-46); Hemoglobin 8.6 g/dL (14.0-18.0); Lymphocyte % 8.2 %; Mean Corpuscular HGB Conc 34 g/dL (31-36); Mean Corpuscular Hemoglobin 31 pg (27-31); Mean Corpuscular Volume 91 fL (80-94); Mean Platelet Volume 8.8 fL (7.4-10.4); Nucleated Red Blood Cells % 0; Platelet Count 143 10^3/uL (150-450); Red Blood Count 2.78 10^6 /uL (4.18-5.48); Red Cell Distribution Width 14 % (10.5-15)
[2018-06-09 10:34] LABS: BUN/Creatinine Ratio 10.1 (8-20); Calcium 7.7 mg/dL (8.6-10.3); EGFR African American 113.9 (>60); EGFR Non-African American 94.1 (>60); Magnesium 1.4 mg/dL (1.9-2.7)
[2018-06-09] MEDS ORDERED: Magnesium Sulf 4 GM/100 ML IV* 4,000 MG/100 ML BAG IVPB ONE (12:16)
[2018-06-09] MEDS: oxyCODONE TAB* 5 MG TAB PO PRN (20:58)
[2018-06-09] MEDS: Senna TAB PO SCH (20:59)
[2018-06-09] MEDS: LORazepam TAB(*) 1 MG PO PRN (20:59)
[2018-06-10] MEDS: fentaNYL Patch Check Q Shift 1 NOTE FOLLOW UP SCH ×2 (06:49→18:58)
[2018-06-10 07:31] LABS: Albumin 2.9 g/dL (3.2-5.2); Albumin/Globulin Ratio 0.8 (1-3); BUN/Creatinine Ratio 11.9 (8-20); Calcium 8.2 mg/dL (8.6-10.3); EGFR African American 106.1 (>60); EGFR Non-African American 87.7 (>60); Globulin 3.7 g/dL (2-4); Magnesium 1.6 mg/dL (1.9-2.7); Potassium 3.6 mmol/L (3.5-5.0); Total Bilirubin 0.4 mg/dL (0.2-1.0); Total Protein 6.6 g/dL (6.4-8.9)
[2018-06-10] MEDS: Pantoprazole TAB * 40 MG TAB PO SCH (08:19)
[2018-06-10] MEDS: Metoprolol Tartrate TAB* 50 mg PO SCH ×2 (08:20→20:21)
[2018-06-10] MEDS: Gabapentin CAP(*) 100 MG PO SCH ×3 (08:20→20:21)
[2018-06-10] MEDS: cloNIDine TAB* 0.1 MG PO SCH ×2 (08:20→20:21)
--- NOTE | 2018-06-10 10:06 | PN ---
Progress Note - Progress Note Date of Service: 06/10/18 SOAP: Subjective: [Feeling good today. Less pain in his feet, and he is getting up and around. Urine output remains high, ~6L yesterday. Eating and drinking well.] Objective: [ Laboratory Results - last 24 hr 06/09/18 06/09/18 06/10/18 09:56 09:56 06:17 WBC 7.0 RBC 2.78 L Hgb 8.6 L Hct 25 L MCV 91 MCH 31 MCHC 34 RDW 14 Plt Count 143 L MPV 8.8 Neut % (Auto) 81.3 Lymph % (Auto) 8.2 Stewart % (Auto) 7.4 Eos % (Auto) 2.6 Baso % (Auto) 0.5 Absolute Neuts (auto) 5.7 Absolute Lymphs (auto) 0.6 L Absolute Monos (auto) 0.5 Absolute Eos (auto) 0.2 Absolute Basos (auto) 0 Absolute Nucleated RBC 0 Nucleated RBC % 0 Sodium 138 137 Potassium 4.0 3.6 Chloride 105 100 L Carbon Dioxide 27 29 Anion Gap 6 8 BUN 8 10 Creatinine 0.79 0.84 Est GFR ( Amer) 113.9 106.1 Est GFR (Non-Af Amer) 94.1 87.7 BUN/Creatinine Ratio 10.1 11.9 Glucose 103 H 100 Calcium 7.7 L 8.2 L Magnesium 1.4 L 1.6 L Total Bilirubin 0.40 AST 50 H ALT 50 Alkaline Phosphatase 145 H Total Protein 6.6 Albumin 2.9 L Globulin 3.7 Albumin/Globulin Ratio 0.8 L Clonidine HCl (Catapres Tab*) 0.1 mg PO BID [facility] Last Admin: 06/10/18 08:20 Dose: 0.1 mg Fentanyl (Duragesic Patch 25 Mcg/Hr*) 25 mcg TRANSDERM Q72H [facility] Last Admin: 06/08/18 10:14 Dose: 25 mcg Gabapentin (Neurontin Cap(*)) 200 mg PO TID [facility] Last Admin: 06/10/18 08:20 Dose: 200 mg Magnesium Sulfate (Magnesium Sulf 4 Gm/100 Ml Iv*) 4,000 mg in 100 mls @ 33.333 mls/hr IVPB ONCE ONE Stop: 06/10/18 13:01 Lorazepam (Ativan Tab(*)) 1 mg PO BEDTIME PRN PRN Reason: ANXIETY, SLEEP Last Admin: 06/09/18 20:59 Dose: 1 mg Metoprolol Tartrate (Lopressor Tab*) 50 mg PO BID [facility] Last Admin: 06/10/18 08:20 Dose: 50 mg Ondansetron HCl (Zofran Inj*) 4 mg IV Q4H PRN PRN Reason: NAUSEA/VOMITING Last Admin: 06/04/18 21:19 Dose: 4 mg Oxycodone HCl (Roxycodone Tab*) 5 mg PO Q4H PRN PRN Reason: PAIN Last Admin: 06/09/18 20:58 Dose: 5 mg Pantoprazole Sodium (Protonix Tab*) 40 mg PO DAILY [facility] Last Admin: 06/10/18 08:19 Dose: 40 mg Pharmacy Profile Note (Fentanyl Patch Check Q Shift) 1 note FOLLOW UP 0700, 1900 [facility] Last Admin: 06/10/18 06:49 Dose: 1 note Senna (Senokot Tab*) 2 tab PO BEDTIME [facility] Last Admin: 06/09/18 20:59 Dose: 2 tab Senna (Senokot Tab*) 1 tab PO DAILY PRN PRN Reason: CONSTIPATION Vital Signs: Temp Pulse Resp BP Pulse Ox 98.4 F 74 16 139/76 94 06/10/18 07:15 06/10/18 07:15 06/10/18 08:20 06/10/18 07:15 06/10/18 07:15 Exam: Gen: no distress HEENT: MMM, pale CV: RRR Resp: CTA, no w/c/r Abd: soft, NT. obese Ext: trace LE edema (improved) Skin: no rashes] Assessment: [82 yo male with metastatic prostate CA admitted with LOUIS secondary to bladder outlet obstruction, s/p Cedeno catheter placement with normalization of Cr but complicated by postobstructive diuresis and K/Mg wasting. Now improved. ] Plan: [1. LOUIS secondary to bladder outlet obstruction - Cr improved to baseline. - keep Cedeno catheter in place 2. Postobstructive diuresis with hypokalemia/hypomagnesemia - Improved today with K WNL, Mg still low but improving (1.6 today) - output remains high with ~ -5L fluid balance yesterday, Cr remains stable - will replete Mg today and monitor output off of IVF for an additional 24h 3. Metastatic prostate CA - plan for home with hospice following this hospitalization 4. Pain - cont fentanyl patch 25 mcg and prn oxycodone Dispo: plan for home with hospice tomorrow (sign on Tuesday)]
[2018-06-10] MEDS ORDERED: Magnesium Sulf 4 GM/100 ML IV* 4,000 MG/100 ML BAG IVPB ONE (10:30)
[2018-06-10] MEDS: oxyCODONE TAB* 5 MG TAB PO PRN (20:21)
[2018-06-10] MEDS: LORazepam TAB(*) 1 MG PO PRN (20:22)
[2018-06-10] MEDS: Senna TAB PO SCH (20:27)
[2018-06-11] MEDS: fentaNYL Patch Check Q Shift 1 NOTE FOLLOW UP SCH (07:10)
[2018-06-11 07:36] LABS: BUN/Creatinine Ratio 14.8 (8-20); Calcium 8.1 mg/dL (8.6-10.3); EGFR African American 110.7 (>60); EGFR Non-African American 91.5 (>60); Magnesium 1.7 mg/dL (1.9-2.7); Potassium 3.1 mmol/L (3.5-5.0)
[2018-06-11] MEDS: Gabapentin CAP(*) 100 MG PO SCH ×2 (09:16→13:16)
[2018-06-11] MEDS: cloNIDine TAB* 0.1 MG PO SCH (09:16)
[2018-06-11] MEDS: Metoprolol Tartrate TAB* 50 mg PO SCH (09:16)
[2018-06-11] MEDS: Pantoprazole TAB * 40 MG TAB PO SCH (09:16)
[2018-06-11] MEDS ORDERED: Magnesium Sulfate 2 GM IV* 2 GM/50 ML BAG IVPB ONE (09:27)
[2018-06-11] MEDS: KCL 10 MEQ/50 ML IVPREMIX* 10 MEQ/50 ML BAG IV SCH ×3 (11:06→13:16)
[2018-06-11] MEDS: fentaNYL PATCH 25 MCG/HR TRANSDERM SCH (11:13)
[2018-06-11 13:00] VITALS: BP 110/59
--- NOTE | 2018-06-11 18:35 | DS ---
CC: Dr. Wright; [facility] * DISCHARGE SUMMARY: DATE OF ADMISSION: 06/02/18 DATE OF DISCHARGE: 06/11/18 PRIMARY CARE PROVIDER: Dr. Wright. CONSULTING PALLIATIVE PHYSICIAN: Dr. Keith. PRIMARY ONCOLOGIST AND ATTENDING PHYSICIAN: Dr. Henry Jimenez.* (DICTATED BY ADELSO DEL RIO) DISCHARGING PROVIDER: ADELSO Del Rio PRIMARY DISCHARGE DIAGNOSES: 1. 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 2. Postobstructive diuresis with persistent hypokalemia and hypomagnesemia. 3. Metastatic prostate cancer, recently treated with abiraterone with plan for discharge to hospice. DISCHARGE MEDICATIONS: 1. Aspirin 81 mg p.o. daily. 2. Clonidine 0.1 mg p.o. twice daily. 3. Metoprolol tartrate 50 mg p.o. twice daily. 4. Protonix 20 mg p.o. daily. 5. Fentanyl patch 25 mcg transdermal, replace every 72 hours. 6. Gabapentin 200 mg p.o. 3 times daily. 7. Ativan 1 mg p.o. at bedtime. 8. Oxycodone 5 mg p.o. q.4 hours as needed for pain. 9. Senna 1 tablet p.o. daily. HOSPITAL IMAGIN. Renal ultrasound on 06/05/18 demonstrates mild right and moderate left hydronephrosis. 2. CT abdomen and pelvis on 06/02/18 demonstrates moderate degree of bilateral hydronephrosis, urinary bladder is distended. HOSPITAL COURSE: This is an 82-year-old gentleman with metastatic prostate cancer under the care of Dr. Jimenez who was started on abiraterone on 05/18/18 and presented to the oncology office shortly after starting the medication with complaints of constipation, found to have a small rise in creatinine and received IV fluids, increased bowel regimen at that time with his abiraterone being held. He subsequently developed diarrhea following his constipation, increasing pain in his abdomen with very poor oral intake. He had noted some lower extremity edema as well. He subsequently presented to the oncology office with these complaints and creatinine was measured at 16.[address] of the abdomen and pelvis demonstrated bilateral hydronephrosis and a distended urinary bladder and most likely secondary to bladder outlet obstruction. The patient subsequently had a Cedeno catheter placed and was admitted to the hospital. The patient had several days of very high output following Cedeno placement up to 9 to 10 L in a day. He continued on IV fluids and subsequently became hypokalemic and hypomagnesemic. It required several days of aggressive electrolyte repletion before these stabilized. During his hospitalization, the patient spoke with Dr. Jimenez regarding more long - term management for his prostate cancer and he wished to no longer continue treatment and desired hospice services. The patient met with palliative physician, Dr. Keith during the patient's hospitalization and he agreed that the patient is hospice appropriate. DISPOSITION AND FOLLOWUP PLAN: The patient is being discharged to home in stable condition where he will be signed on to hospice within the next 1 to 2 days. His brother is local and available to help, but he is otherwise living independently at this time. Cedeno catheter will remain in place and recommend that this continues in place as removing it will surely result in recurrent bladder outlet obstruction and associated kidney failure. The patient's renal function has returned to baseline at the time of discharge and output has slowed to a more reasonable level of approximately 3 L in the last 24-hour period. He is hypokalemic with a potassium of 3.1 and a magnesium of 1.7. He will receive an additional 2 g of magnesium and 30 mEq of potassium IV prior to discharge. ADELSO DEL RIO [id number]/[facility] #: [id number] MTDD
== END 2018-06-11 14:25 | disposition hospice, home (50) | DRG 683 ==
LOC: MED 16:20
PROVIDERS: ADMIT Internal Medicine Hematology & Oncology; ATTEND Internal Medicine Hematology & Oncology
DX: N17.9 Acute kidney failure, unspecified (principal); C79.9 Secondary malignant neoplasm of unspecified site; C61 Malignant neoplasm of prostate; R31.9 Hematuria, unspecified; N32.0 Bladder-neck obstruction; N13.30 Unspecified hydronephrosis; E87.6 Hypokalemia; E83.42 Hypomagnesemia; K59.00 Constipation, unspecified; K21.9 Gastro-esophageal reflux disease without esophagitis; E78.5 Hyperlipidemia, unspecified; I10 Essential (primary) hypertension; M15.9 Polyosteoarthritis, unspecified; B37.9 Candidiasis, unspecified; G62.9 Polyneuropathy, unspecified; Z90.89 Acquired absence of other organs; Z88.8 Allergy status to other drugs, medicaments and biological substances; Z79.82 Long term (current) use of aspirin; Z66 Do not resuscitate; Z51.5 Encounter for palliative care
CPT/HCPCS: 36415; 76775; 80048; 80053; 83735; 84153; 85014; 85018; 85025; 99223; 99232; 99233; 99239; A9270-GY; J1170; J1450; J1644; J2405; J3475; J3480